=== PATIENT | female | born 1995 | race Two or more races ===

== ENCOUNTER 2018-06-12 17:04 | Emergency (ER) | payer OTHER ==
[~2018-06-12] VITALS: Ht 154.9 cm; Wt 58.5 kg
[~2018-06-12 17:04] MED LIST: BENAZEPRIL HCL5 MG; INDERAL LA120 MG; LASIX20 MG; MULTIVITAMINAS; NEURONTIN300 MG; PLAVIX75 MG; SYNTHROID50 MCG
== END 2018-06-12 21:08 | disposition home or self-care (01) ==
LOC: ER 17:04
DX: S13.4XXA Sprain of ligaments of cervical spine, initial encounter (principal); V49.9XXA Car occupant (driver) (passenger) injured in unspecified traffic accident, initial encounter; Y93.89 Activity, other specified; Y92.488 Other paved roadways as the place of occurrence of the external cause; Y99.8 Other external cause status

== ENCOUNTER 2021-10-29 10:58 | Emergency (ER) | payer OTHER ==
[~2021-10-29] VITALS: Ht 154.9 cm; Wt 68.0 kg
[2021-10-29] MEDS ORDERED: AMOX-CLAV 875-1 EACH PO (13:42)
[2021-10-29] MEDS ORDERED: KETO10TA2 PO (13:42)
== END 2021-10-29 13:47 | disposition home or self-care (01) ==
LOC: ER 10:58
DX: N76.0 Acute vaginitis (principal)